=== PATIENT | female | born 1945 ===

== ENCOUNTER 2025-06-16 08:00 | Day surgery (SDC) | payer MEDICARE, OTHER ==
[~2025-06-16 08:00] MED LIST: IBUP200 PO; MASOPHEN325 M3 PO; MULTI-VITAMIN1 EAC2 PO
== END 2025-07-22 22:00 | disposition home or self-care (01) ==
LOC: MOI US 08:00
DX: C50.412 Malignant neoplasm of upper-outer quadrant of left female breast (principal)
CPT/HCPCS: 19285; 77065; A4648

== ENCOUNTER 2025-06-18 09:02 | Day surgery (SDC) | payer MEDICARE, OTHER ==
[~2025-06-18] VITALS: Ht 154.9 cm; Wt 65.3 kg
[2025-06-18] MEDS ORDERED: CeFAZolin Sodium 2,000 MG in NS 100 ML IV SCH (09:30)
[2025-06-18 09:51] VITALS: BP 123/69
--- NOTE | 2025-06-18 10:02 | NUR ---
MARINA FROM NUCLEAR MEDICINE ON HER WAY TO [facility] FOR INJECTION.
[2025-06-18] MEDS ORDERED: Bupivacaine 0.5% HCl 5 MG/ML 30MLVIAL ONE (10:56)
[2025-06-18] MEDS ORDERED: FentaNYL Citrate 50 MCG/ML 2 ML Injection ONE ×2 (11:03→13:05)
[2025-06-18] MEDS ORDERED: Ondansetron HCl 2 MG / ML 2ML Vial ONE (11:18)
[2025-06-18] MEDS ORDERED: Dexamethasone Sod Phos 10 MG/ML 1ML VIAL ONE (11:18)
[2025-06-18] MEDS ORDERED: Ondansetron HCl 2 MG / ML 2ML Vial IV PRN (11:40)
[2025-06-18] MEDS ORDERED: FentaNYL Citrate 50 MCG/ML 2 ML Injection IV PRN (11:45)
[2025-06-18 13:00] VITALS: BP 140/81
[2025-06-18 13:10] VITALS: BP 128/80
[2025-06-18 13:15] VITALS: BP 147/75
[2025-06-18] MEDS ORDERED: HYDROcodone 5-APAP 325 TAB PO PRN (13:15)
[2025-06-18 13:21] VITALS: BP 132/82
== END 2025-06-18 13:43 | disposition home or self-care (01) ==
LOC: ORSCMMR 09:02 → NM 10:00 → ORD 10:30 → ORSCMMR 13:43
PROVIDERS: Surgery
PROC: 07B60ZX Excision of Left Axillary Lymphatic, Open Approach, Diagnostic (ICD-10-PCS; principal; 2025-06-18 10:30)
PROC: 0HBU0ZZ Excision of Left Breast, Open Approach (ICD-10-PCS; principal; 2025-06-18 10:30)
DX: C50.412 Malignant neoplasm of upper-outer quadrant of left female breast (principal); C77.3 Secondary and unspecified malignant neoplasm of axilla and upper limb lymph nodes; Z17.0 Estrogen receptor positive status [ER+]; Z17.21 Progesterone receptor positive status; Z17.32 Human epidermal growth factor receptor 2 negative status
CPT/HCPCS: 38792; 76098; 88307; 88341; 88342; A9520; J0690; J1100; J2405; J2704; J3010; J7120; Q9968

== ENCOUNTER 2025-07-03 09:11 | Day surgery (SDC) | payer MEDICARE, OTHER ==
[~2025-07-03] VITALS: Ht 154.9 cm; Wt 66.1 kg
[2025-07-03] VITALS (7 sets, daily range): BP systolic 108–141; BP diastolic 69–94
[2025-07-03] MEDS ORDERED: CeFAZolin Sodium 2,000 MG in NS 100 ML IV SCH (09:35)
--- NOTE | 2025-07-03 09:37 | NUR ---
Ambulatory in Day SurgeryPre-Op teaching done. Pt verbalizes understanding. History, Chart, Medications and Allergies reviewed before start of procedure.Patient confirms NPO status and agrees with scheduled surgery. Patient reports completing Chlorhexadine shower X2 prior to admission to hospital.Patient States Post-Procedure ride home has been arranged.
[2025-07-03] MEDS ORDERED: Bupivacaine 0.5% HCl 5 MG/ML 30MLVIAL ONE (10:33)
[2025-07-03] MEDS ORDERED: FentaNYL Citrate 50 MCG/ML 2 ML Injection ONE (11:10)
[2025-07-03] MEDS ORDERED: Phenylephrine HCl 100 MCG/ML-NS 10MLSYR (1MG/10ML) ONE (11:19)
[2025-07-03] MEDS ORDERED: Ondansetron HCl 2 MG / ML 2ML Vial ONE (11:19)
[2025-07-03] MEDS ORDERED: Dexamethasone Sod Phos 10 MG/ML 1ML VIAL ONE (11:19)
[2025-07-03] MEDS ORDERED: FentaNYL Citrate 50 MCG/ML 2 ML Injection IV PRN ×3 (11:30→11:35)
[2025-07-03] MEDS ORDERED: HYDROmorphone HCl/Pf 1MG SYR IV PRN (11:30)
[2025-07-03] MEDS ORDERED: Labetalol HCL 5 MG/ML 4ML Injection (Single Dose) IV PRN (11:35)
[2025-07-03] MEDS ORDERED: Ondansetron HCl 2 MG / ML 2ML Vial IV PRN (11:35)
[2025-07-03] MEDS ORDERED: Ketorolac Tromethamine 30mg Vial ONE (11:50)
[2025-07-03] MEDS ORDERED: HYDROcodone 5-APAP 325 TAB PO PRN (11:55)
--- NOTE | 2025-07-03 13:01 | NUR ---
Discharge instructions reviewed with patient. Patient verbalizes understanding. Copy given to patient to take home. BREAST BINDER ON, INCISION STERI STRIPS C/D/I. Discharged via wheelchair to private car for ride home.
== END 2025-07-03 13:03 | disposition home or self-care (01) ==
LOC: ORSCMMR 09:11 → ORD 09:30 → ORSCMMR 09:30
PROVIDERS: Surgery
PROC: 0HBU0ZZ Excision of Left Breast, Open Approach (ICD-10-PCS; principal; 2025-07-03 10:30)
DX: C50.412 Malignant neoplasm of upper-outer quadrant of left female breast (principal); C77.3 Secondary and unspecified malignant neoplasm of axilla and upper limb lymph nodes; Z17.0 Estrogen receptor positive status [ER+]; Z17.21 Progesterone receptor positive status; Z17.32 Human epidermal growth factor receptor 2 negative status
CPT/HCPCS: 88305; J0690; J1100; J1885; J2371; J2405; J2704; J3010; J7120